=== PATIENT | male | born 2000 | race American Indian/Alaskan Native ===

== ENCOUNTER 2019-03-20 21:59 | Emergency (ER) | payer SELFPAY ==
[2019-03-20 22:09] VITALS: BP 111/75
[2019-03-20] MEDS ORDERED: SODIUM CHLORIDE 0.9% 1000 ML 1,000 ML IV ONE (23:47)
[2019-03-20] MEDS ORDERED: ONDANSETRON 4 MG/2 ML INJ IV ONE (23:47)
[2019-03-20] MEDS ORDERED: HYDROmorphone 1 MG/1 ML INJ IV ONE (23:47)
[2019-03-20] MEDS ORDERED: HYDROmorphone 1 MG/1 ML INJ ONE (23:50)
[2019-03-20] MEDS ORDERED: SODIUM CHLORIDE 0.9% 1000 ML 1,000 ML ONE (23:50)
[2019-03-20] MEDS ORDERED: ONDANSETRON 4 MG/2 ML INJ ONE (23:50)
--- NOTE | 2019-03-20 23:50 | Emergency Department Report ---
ED Abdominal Pain HPI - General Chief Complaint: Chest Pain Stated Complaint: CHEST PAIN,RIGHT ABDOMINAL PAIN Time Seen by Provider: 03/20/19 23:45 Source: patient Mode of arrival: Ambulatory Limitations: No Limitations - History of Present Illness Initial Comments: Patient is a 18-year-old mellitus emergency room with complaints of right lower quadrant pain. Patient states the pain is radiating to his right flank and his back and chest. Patient denies fever and chills. Patient states he also has nausea vomiting. Patient states that his symptoms started 5 hours ago. Patient states his symptoms are worsening. Patient states his pain is unbearable. Patient states his pain is worse with movement, vomiting. Patient states his pain is better with rest. MD Complaint: abdominal pain -: Sudden Location: RLQ Radiation: R flank, back, chest Migration to: no migration Severity: severe Severity scale (0 -10): 10 Quality: stabbing Consistency: constant Improves With: rest Worsens With: vomiting, movement Associated Symptoms: nausea, vomiting, anorexia. denies: diarrhea, fever, chills, constipation, dysuria, hematemesis, hematochezia, melena, hematuria, syncope - Related Data Previous Rx's Medication Instructions Recorded Last Taken Type HYDROcodone/APAP 5-325 [[place] 1 each PO Q4HR PRN #12 tablet 03/21/19 Unknown Rx 5/325] Ondansetron [Zofran Odt] 4 mg PO Q6HR PRN #20 tab.rapdis 03/21/19 Unknown Rx Sulfamethoxazole/Trimethoprim 1 each PO BID 7 Days #14 tablet 03/21/19 Unknown Rx [Bactrim DS TAB] Tamsulosin [Flomax] 0.4 mg PO QDAY 14 Days #14 cap 03/21/19 Unknown Rx Allergies Allergy/AdvReac Type Severity Reaction Status Date / Time No Known Allergies Allergy Verified 03/20/19 23:52 ED Review of Systems ROS: Stated complaint: CHEST PAIN,RIGHT ABDOMINAL PAIN Other details as noted in HPI Constitutional: denies: chills, fever Eyes: denies: eye pain, eye discharge, vision change ENT: denies: ear pain, throat pain Respiratory: denies: cough, shortness of breath, wheezing Cardiovascular: denies: chest pain, palpitations Endocrine: no symptoms reported Gastrointestinal: abdominal pain, nausea, vomiting. denies: diarrhea Genitourinary: denies: urgency, dysuria Musculoskeletal: denies: back pain, joint swelling, arthralgia Skin: denies: rash, lesions Neurological: denies: headache, weakness, paresthesias Psychiatric: denies: anxiety, depression Hematological/Lymphatic: denies: easy bleeding, easy bruising ED Past Medical Hx - Past Medical History Previous Medical History?: No - Surgical History Past Surgical History?: Yes Additional Surgical History: Right Pinky Amputation - Family History Family history: no significant - Social History Smoking Status: Current Every Day Smoker Substance Use Type: None - Medications Home Medications: Home Medications Medication Instructions Recorded Confirmed Last Taken Type HYDROcodone/APAP 5-325 [[place] 1 each PO Q4HR PRN #12 tablet 03/21/19 Unknown Rx 5/325] Ondansetron [Zofran Odt] 4 mg PO Q6HR PRN #20 tab.rapdis 03/21/19 Unknown Rx Sulfamethoxazole/Trimethoprim 1 each PO BID 7 Days #14 tablet 03/21/19 Unknown Rx [Bactrim DS TAB] Tamsulosin [Flomax] 0.4 mg PO QDAY 14 Days #14 cap 03/21/19 Unknown Rx ED Physical Exam - General Limitations: No Limitations General appearance: alert, in no apparent distress - Head Head exam: Present: atraumatic, normocephalic - Eye Eye exam: Present: normal appearance - ENT ENT exam: Present: mucous membranes moist - Neck Neck exam: Present: normal inspection - Respiratory Respiratory exam: Present: normal lung sounds bilaterally. Absent: respiratory distress - Cardiovascular Cardiovascular Exam: Present: regular rate, normal rhythm. Absent: systolic murmur, diastolic murmur, rubs, gallop - GI/Abdominal GI/Abdominal exam: Present: soft, tenderness (RLQ ttp), normal bowel sounds - Rectal Rectal exam: Present: deferred - Extremities Exam Extremities exam: Present: normal inspection - Back Exam Back exam: Present: normal inspection - Neurological Exam Neurological exam: Present: alert, oriented X3 - Psychiatric Psychiatric exam: Present: normal affect, normal mood - Skin Skin exam: Present: warm, dry, intact, normal color. Absent: rash ED Course Vital Signs 03/20/19 03/21/19 03/21/19 22:02 02:02 02:23 Temperature 98.8 F Pulse Rate 57 L Respiratory 20 16 18 Rate Blood Pressure 111/75 O2 Sat by Pulse 99 100 Oximetry - Reevaluation(s) Reevaluation #1: pt states he is still in severe pain. Patient states his pain is 9 out of 10. Patient will be given another dose of Dilaudid 03/21/19 00:34 Reevaluation #2: She states his pain is almost resolved. Patient is resting comfortably in bed. I discussed all findings and results with patient. I discussed plan of care patient. Patient agrees with plan of care. Patient stable for discharge. Patient was discharged home. Patient given discharge instructions. Patient voiced understanding of discharge instructions. 03/21/19 02:46 Reevaluation #3: Just prior to discharge, the patient began to vomit. Patient given 4 Zofran and symptoms improved. 03/21/19 03:15 Reevaluation #4: Patient tolerated by mouth intake. No further nausea or vomiting noted. Patient discharged be initiated. 03/21/19 04:02 ED Medical Decision Making - Lab Data Result diagrams: 03/20/19 23:12 03/20/19 23:12 - EKG Data -: EKG Interpreted by Md EKG shows normal: sinus rhythm, axis, intervals, QRS complexes, ST-T waves Rate: bradycardia - Radiology Data Radiology results: report reviewed CT of the abdomen and pelvis with contrast INDICATION: Right lower quadrant pain COMPARISON: None FINDINGS: There is minimal right basilar atelectasis. There is mild to moderate periportal edema which is nonspecific. There may be a small amount of fluid in the gallbladder fossa without gallstones or definite cholecystitis. The spleen, pancreas, adrenal glands and left kidney show no abnormalities. There is mild hydronephrosis of the right kidney without perinephric edema. There is a persistent cortical medullary phase in the right kidney as well. No intrarenal calculi seen in either kidney. No biliary tree dilation. No adenopathy is seen. CT of the pelvis shows no diverticulosis or diverticulitis. There is mild right hydroureter down to the level of the coccyx where there is a 1-2 mm stone causing moderate obstruction. No distal ureteral stones. No stone fragments seen in the bladder. No pelvic or inguinal adenopathy. Appendix is seen and is normal. No bowel obstruction. No significant skeletal lesion. IMPRESSION: Small distal right ureteral stone with moderate obstruction. Pe riportal edema is nonspecific. - Medical Decision Making Patient is a 18-year-old male up since emergency room with complaints of right lower quadrant pain radiating to his right flank, right back and right chest. Patient's labs unremarkable except for an elevated WBC which is most like secondary to stress reaction and pain. Patient's urine is positive for hematuria. Patient had a CT done of the abdomen due to his present illness. Patient's CT was negative for appendicitis and positive for a right kidney stone. Patient given Zofran for nausea in the ER. Patient's nausea resolved. Patient's pain resolved with pain medications and Toradol. Patient stable for discharge. Patient discharged home. Patient given discharge instructions. Patient's chemistry was negative. Patient given IV fluids in the ER as well. - Differential Diagnosis kidney stone, appendicitis, abdominal pain, nausea vomiting Critical care attestation.: If time is entered above; I have spent that time in minutes in the direct care of this critically ill patient, excluding procedure time. ED Disposition Clinical Impression: Flank pain, acute, Right kidney stone Abdominal pain Qualifiers: Abdominal location: right lower quadrant Qualified Code(s): R10.31 - Right lower quadrant pain Nausea & vomiting Qualifiers: Vomiting type: unspecified Vomiting Intractability: non-intractable Qualified Code(s): R11.2 - Nausea with vomiting, unspecified Disposition: DC-01 TO HOME OR SELFCARE Is pt being admited?: No Does the pt Need Aspirin: No Condition: Stable Instructions: Kidney Stones (ED), Renal Colic (ED), How to Strain Your Urine (ED), Flank Pain (ED) Additional Instructions: Patient to follow up with primary care in 2-3 days. Patient to follow-up with urologist in 2-3 days. Patient to return to ER if condition worsens, changes or new symptoms arise. Patient to take meds as directed. Patient to Tylenol or ibuprofen when necessary for pain. Patient to increase water. Prescriptions: Sulfamethoxazole/Trimethoprim [Bactrim DS TAB] 1 each PO BID 7 Days #14 tablet Tamsulosin [Flomax] 0.4 mg PO QDAY 14 Days #14 cap HYDROcodone/APAP 5-325 [[place] 5/325] 1 each PO Q4HR PRN #12 tablet PRN Reason: Pain Ondansetron [Zofran Odt] 4 mg PO Q6HR PRN #20 tab.rapdis PRN Reason: Nausea And Vomiting Referrals: HAYDE ALBERTS MD [Staff Physician] - 2-3 Days Forms: Work/School Release Form(ED) Time of Disposition: 02:45
[2019-03-21 00:10] LABS: Basophils # (Auto) 0.1 K/mm3 (0.0-0.1); Basophils % (Auto) 0.3 % (0.0-1.8); Eosinophils % (Auto) 0.2 % (0.0-4.3); Hematocrit 44.4 % (35.5-45.6); Hemoglobin 14.8 gm/dl (11.8-15.2); Lymphocytes # (Auto) 2.7 K/mm3 (1.2-5.4); Lymphocytes % (Auto) 13.6 % (13.4-35.0); Mean Corpuscular HGB Conc 33 % (32-34); Mean Corpuscular Volume 92 fl (84-94); Monocytes # (Auto) 1.1 K/mm3 (0.0-0.8); Monocytes % (Auto) 5.6 % (0.0-7.3); Platelet Count 245 K/mm3 (140-440); Red Blood Count 4.85 M/mm3 (3.65-5.03)
[2019-03-21 00:18] LABS: Alanine Aminotransferase 10 units/L (7-56); Albumin 4.8 g/dL (3.9-5); BUN/Creatinine Ratio 10; Blood Urea Nitrogen 8 mg/dL (9-20); Calcium 9.8 mg/dL (8.4-10.2); Hemolysis Index 14
[2019-03-21] MEDS ORDERED: HYDROmorphone 2 MG/1 ML INJ IV ONE (00:33)
[2019-03-21 00:58] LABS: Bilirubin,Urine NEG (Negative); Blood,Urine LG (Negative); Color,Urine Yellow (Yellow); Mucus,Urine 3+ /HPF; Protein,Urine <15 mg/dL mg/dL (Negative)
--- NOTE | 2019-03-21 01:25 | Cat Scan Report ---
CT of the abdomen and pelvis with contrast INDICATION: Right lower quadrant pain COMPARISON: None FINDINGS: There is minimal right basilar atelectasis. There is mild to moderate periportal edema whic h is nonspecific. There may be a small amount of fluid in the gallbladder fossa without gallstones or definite cholecystitis. The spleen, pancreas, adrenal glands and left kidney show no abnormalities. There is mild hydronephrosis of the right kidney without perinephric edema. There is a persistent cor tical medullary phase in the right kidney as well. No intrarenal calculi seen in either kidney. No bi liary tree dilation. No adenopathy is seen. CT of the pelvis shows no diverticulosis or diverticulitis. There is mild right hydroureter down to t he level of the coccyx where there is a 1-2 mm stone causing moderate obstruction. No distal ureteral stones. No stone fragments seen in the bladder. No pelvic or inguinal adenopathy. Appendix is seen a nd is normal. No bowel obstruction. No significant skeletal lesion. IMPRESSION: Small distal right ureteral stone with moderate obstruction. Periportal edema is nonspeci fic. Automated exposure control was utilized to diminish radiation dose. Signer Name: Jay Yanez MD Signed: 03/21/2019 1:20 AM Workstation Name: [id number]
[2019-03-21] MEDS ORDERED: KETOROLAC 30 MG/1 ML INJ IV ONE (01:45)
[2019-03-21] MEDS ORDERED: ONDANSETRON 4 MG/2 ML INJ ONE (03:26)
[2019-03-21] MEDS ORDERED: ONDANSETRON 4 MG/2 ML INJ IV ONE (03:35)
== END 2019-03-21 03:57 | disposition home or self-care (01) ==
LOC: ED 21:59
DX: N20.0 Calculus of kidney (principal); F17.200 Nicotine dependence, unspecified, uncomplicated; Z79.899 Other long term (current) drug therapy
CPT/HCPCS: 36415; 74177; 80053; 81001; 83690; 85025; 93005; 93010; 96361; 96374; 96375; 96376; 99284; J1170; J1885; J2405; J7030; Q9967

== ENCOUNTER 2020-09-08 22:51 | Emergency (ER) | payer OTHER ==
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
[2020-09-08] MEDS ORDERED: SODIUM CHLORIDE 0.9% IRR 500 ML BOTTLE IR ONE (23:49)
[2020-09-08] MEDS ORDERED: IBUPROFEN 600 MG TAB PO ONE (23:49)
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
[2020-09-09 00:23] VITALS: BP 114/56
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
[2020-09-09] MEDS ORDERED: HYDROcodone/ACETAMINOPHEN 5-325 MG TAB PO STA (02:25)
== END 2020-09-09 02:35 | disposition home or self-care (01) ==
LOC: ED 22:51
DX: S40.812A Abrasion of left upper arm, initial encounter (principal); M54.5 Low back pain; M54.2 Cervicalgia; V89.2XXA Person injured in unspecified motor-vehicle accident, traffic, initial encounter; Y93.89 Activity, other specified; Y92.488 Other paved roadways as the place of occurrence of the external cause; Y99.8 Other external cause status
CPT/HCPCS: 70450; 72100; 72125; 72131; 99284